=== PATIENT | male | born 2000 | race American Indian/Alaskan Native ===

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

== ENCOUNTER 2018-07-29 21:25 | Emergency (ER) | payer MEDICAID | END 2018-07-30 00:56 | disposition home or self-care (01) | LOC: ED 07-30 00:56 ==

== ENCOUNTER 2018-09-20 14:06 | Emergency (ER) | payer MEDICAID ==
[2018-09-20 14:33] VITALS: BMI 35.0
[2018-09-20] MEDS ORDERED: Albuterol 0.083% Inhal Sol (2.5 mg/3 mL) UD IH STA (14:48)
--- NOTE | 2018-09-20 16:37 | ED PDOC ---
Arrival/HPI - General Chief Complaint: Cough, Cold, Congestion Time Seen by Provider: 09/20/18 14:08 Historian: Patient - History of Present Illness Narrative History of Present Illness (Text): 09/20/18 18:50 18-year-old male with a history of asthma presents today with a 2-week history of cough nasal congestion and intermittent sore throat. Patient denies fevers or chills. No chest pain. Patient states the cough is dry with occasional mucus production. Patient states he has a history of asthma but has not used an inhaler in over a year. Patient denies abdominal pain. No nausea vomiting diarrhea constipation. No dizziness or weakness. Patient denies difficulty breathing or swallowing. No other complaints Past Medical History - Provider Review Nursing Documentation Reviewed: Yes - Travel History Have you recently traveled outside [place] w/in the past 3 mons?: No - Infectious Disease Hx of Infectious Diseases: None - Cardiac Hx Cardiac Disorders: No - Pulmonary Hx Respiratory Disorders: No - Neurological Hx Neurological Disorder: Yes Hx Migraine: Yes - HEENT Hx HEENT Disorder: No - Renal Hx Renal Disorder: No - Endocrine/Metabolic Hx Endocrine Disorders: No - Hematological/Oncological Hx Blood Disorders: No - Integumentary Hx Dermatological Disorder: No - Musculoskeletal/Rheumatological Hx Musculoskeletal Disorders: No - Gastrointestinal Hx Gastrointestinal Disorders: No - Genitourinary/Gynecological Hx Genitourinary Disorders: No - Psychiatric Hx Psychophysiologic Disorder: No Hx Substance Use: No - Anesthesia Hx Anesthesia: No Hx Anesthesia Reactions: No Hx Malignant Hyperthermia: No Family/Social History - Physician Review Nursing Documentation Reviewed: Yes Family/Social History: Unknown Family HX Smoking Status: Never Smoked Hx Alcohol Use: Yes Frequency of alcohol use: Socially Hx Substance Use: No Allergies/Home Meds Allergies/Adverse Reactions: Allergies No Known Allergies Allergy (Verified 12/15/17 09:27) Review of Systems - Review of Systems Constitutional: absent: Fatigue, Fevers ENT: Sore Throat, Sinus Congestion Respiratory: Cough. absent: SOB Cardiovascular: absent: Chest Pain, Palpitations Gastrointestinal: absent: Abdominal Pain, Constipation, Diarrhea, Nausea, Vomiting Genitourinary Male: absent: Dysuria, Frequency, Hematuria Musculoskeletal: absent: Arthralgias, Back Pain, Neck Pain Skin: absent: Rash, Pruritis Neurological: absent: Headache, Dizziness Psychiatric: absent: Anxiety, Depression Physical Exam Vital Signs Reviewed: Yes Vital Signs Temp Pulse Resp BP Pulse Ox 09/20/18 16:23 98.1 F 58 L 18 120/76 100 09/20/18 14:07 97.9 F 55 L 18 106/63 96 Temperature: Afebrile Blood Pressure: Normal Pulse: Regular Respiratory Rate: Normal Appearance: Positive for: Well-Appearing, Non-Toxic, Comfortable Pain Distress: None Mental Status: Positive for: Alert and Oriented X 3 - Systems Exam Head: Present: Atraumatic Pupils: Present: PERRL Extroacular Muscles: Present: EOMI Conjunctiva: Present: Normal Ears: Present: Normal, NORMAL TM Mouth: Present: Moist Mucous Membranes, Normal Lips, Normal Tounge. No: Drooling, Trismus Pharnyx: No: ERYTHEMA, EXUDATE, TONSILS ENLARGED, Peritonsilar Swelling, Uvular Deviation, Muffled/Hoarse Voice Nose (External): Present: Atraumatic Nose (Internal): Present: Normal Inspection Neck: Present: Normal Range of Motion, Trachea Midline Respiratory/Chest: Present: Clear to Auscultation, Good Air Exchange. No: Respiratory Distress, Accessory Muscle Use, Wheezes, Retracting, Rhonchi, Tachypneic Cardiovascular: Present: Regular Rate and Rhythm, Normal S1, S2. No: Murmurs Abdomen: No: Tenderness, Distention, Peritoneal Signs Back: Present: Normal Inspection Upper Extremity: Present: Normal ROM Lower Extremity: Present: Normal ROM Neurological: Present: GCS=15, Speech Normal Skin: Present: Warm, Dry, Normal Color. No: Rashes Psychiatric: Present: Alert, Oriented x 3 Medical Decision Making ED Course and Treatment: 09/20/18 19:02 18-year-old male with with cough and sore throat for 2 weeks Rapid strep negative Chest x-ray: No infiltrate or effusion no cardiomegaly Patient was given albuterol treatment in the ER. Patient reassessment: Patient is feeling much better after the albuterol treatment. Patient was started on Zithromax for cough and throat infection. Patient was advised to take medications as prescribed and follow-up with a primary care physician within the next 2 days. Patient was advised me to return if symptoms worsen persist or if new concerning symptoms develop Patient verbalizes understanding of discharge instructions and need for immediate followup. All aspects of this case were discussed the attending of record. Impression: Cough, sore throat Motrin every 6 hours as needed for pain Zithromax daily x4 days use nebulizer at home 3 times daily as needed for cough Use albuterol inhaler Every 4-6 hours as needed for cough Follow-up with the primary care physician within the next 2 days Follow-up with the ENT specialist within the next 2 days Return immediately if symptoms worsen persist or if new concerning symptoms develop Reassessment Condition: Re-examined, Improved - RAD Interpretation Radiology Orders: 09/20/18 14:48 CHEST TWO VIEWS (PA/LAT) [RAD] Stat - Medication Orders Current Medication Orders: Discontinued Medications Albuterol Sulfate (Albuterol 0.083% Inhal Bushra (2.5 Mg/3 Ml) Ud) 2.5 mg IH STAT STA Stop: 09/20/18 14:49 Last Admin: 09/20/18 15:10 Dose: 2.5 mg Disposition/Present on Arrival - Present on Arrival Any Indicators Present on Arrival: No History of DVT/PE: No History of Uncontrolled Diabetes: No Urinary Catheter: No History of Decub. Ulcer: No History Surgical Site Infection Following: None - Disposition Have Diagnosis and Disposition been Completed?: Yes Diagnosis: Cough, Sore throat Disposition: HOME/ ROUTINE Disposition Time: 17:43 Patient Plan: Discharge Condition: GOOD Discharge Instructions (ExitCare): Sore Throat in Adults, Cough, Adult (DC) Additional Instructions: Motrin every 6 hours as needed for pain Zithromax daily x4 days use nebulizer at home 3 times daily as needed for cough Use albuterol inhaler Every 4-6 hours as needed for cough Follow-up with the primary care physician within the next 2 days Follow-up with the ENT specialist within the next 2 days Return immediately if symptoms worsen persist or if new concerning symptoms develop Prescriptions: Albuterol HFA [Ventolin HFA 90 mcg/actuation (8 g)] 2 puff IH [id number] PRN #1 inhaler PRN Reason: Cough Albuterol 0.083% [Albuterol 0.083% Inhal Bushra (2.5 mg/3 ml) UD] 1 vial IH TID PRN #1 packet PRN Reason: Cough Azithromycin [Zithromax] 250 mg PO DAILY #4 tab Ibuprofen [Motrin] 600 mg PO Q6H PRN #20 tab PRN Reason: pain/fever reduction Nebulizer [Compact Compressor Nebulizer] 1 dev XX PRN PRN #1 dev PRN Reason: Cough Referrals: Andreina Moran MD [Medical Doctor] - Follow up with primary Neville Garay MD [Staff Provider] - Follow up with primary [employer] [Outside] - Follow up with primary Robinson Reid DO [Staff Provider] - Follow up with primary Forms: [employer] [facility] (Telugu), WORK NOTE
--- NOTE | 2018-09-20 17:07 | RAD ---
Date of service: 09/20/2018 HISTORY: Cough COMPARISON: No prior. TECHNIQUE: Chest PA and lateral FINDINGS: LINES AND TUBES: None. LUNG AND PLEURA: The lungs are well inflated and clear. No pleural effusion or pneumothorax. HEART AND MEDIASTINUM: The heart is not enlarged. No aortic atherosclerotic calcifications present. The hilar and mediastinal contours are within normal limits. SKELETAL STRUCTURES: The bony structures are within normal limits for the patient's age. VISUALIZED UPPER ABDOMEN: Normal. OTHER FINDINGS: None. IMPRESSION: No active pulmonary disease.
[2018-09-20 17:54] VITALS: BP 110/74; PULSE 57; RESP 16; TEMP 98.3; O2SAT 98
== END 2018-09-20 17:53 | disposition home or self-care (01) ==
LOC: ED 14:06
DX: J02.9 Acute pharyngitis, unspecified (principal); R05 Cough